=== PATIENT | male | born 1960 | race Caucasian/White ===

== ENCOUNTER 2023-08-12 08:28 | Day surgery (SDC) | payer BC, SELFPAY ==
[2023-08-02 09:01] LABS: % Basophils 0.6 % (0-2); % Eosinophils 3.1 % (0-6); % Immature Granulocytes 0.3 % (0-0.5); % Lymphocytes 33.5 % (20.5-51.1); % Monocytes 7.8 % (1.7-9.3); % Neutrophils 54.7 % (42.2-75.2); Absolute Eosinophils 0.2 10^3/uL (0-0.7); Absolute Lymphocytes 2.4 10^3/uL (1.2-3.4); Absolute Monocytes 0.6 10^3/uL (0.1-0.6); Absolute Neutrophils 3.9 10^3/uL (1.4-6.5); Hematocrit 40.5 % (39.0-52.0); Hemoglobin 14.5 g/dL (13.0-18.0); Mean Corp Hgb Conc. 35.8 g/dL (33.0-37.0); Mean Corpuscular Hgb 31.1 pg (27.0-31.0); Mean Corpuscular Volume 86.9 fL (80.0-94.0); Mean Platelet Volume 10.1 fL (7.4-10.4); Nucleated Red Blood Cells % 0 % (-); Platelet Count 173 10^3/uL (130-400); Red Blood Cell Count 4.66 10^6/uL (4.70-6.10); White Blood Cell Count 7.1 10^3/uL (4.8-10.8)
[2023-08-02 09:12] LABS: ALT (SGPT) 26 U/L (0-50); AST (SGOT) 25 U/L (17-59); Albumin 4.3 g/dl (3.5-5.0); Alkaline Phosphatase 99 U/L (38-126); Blood Urea Nitrogen 24 mg/dl (9-20); Calcium 9.1 mg/dl (8.4-10.2); Carbon Dioxide 28 mmol/L (22-30); Chloride 103 mmol/L (98-107); Glucose 99 mg/dl (70-99); Magnesium 1.9 mg/dl (1.6-2.3); Potassium 4.3 mmol/L (3.5-5.1); Sodium 139 mmol/L (135-145); Total Bilirubin 0.8 mg/dl (0.2-1.3); Total Protein 6.8 g/dl (6.3-8.2); eGFR > 60.00
--- NOTE | 2023-08-02 09:22 | HPS.HSE ---
Family Physician
-
Family Physician: Lance Michaud
Chief Complaint
-
Paroxysmal atrial fibrillation.
History of Present Illness
The patient is a 62 year old male presenting today for paroxysmal atrial fibrillation. The patient reports a history of fatigue, dizziness, and shortness of breath secondary to this diagnosis. He has previously undergone 2 pulmonary vein
isolations in November 2019 and October 2021 for his arrhythmia. He is on current pharmacological therapy with Diltiazem. He has been compliant with Eliquis for oral anticoagulation. He notes that his symptoms associated with his atrial fibrillation
greatly interfere with his activities of daily living and overall have impacted his quality of life. He is interested in pursuing pulmonary vein isolation again for further arrhythmia management. He denies any current complaints today such as chest
pain, shortness of breath at rest, palpitations, nausea, vomiting, diarrhea, lightheadedness, cough, sore throat, or fever.
Medical History
Past Medical History
Past Medical History: Reports Other
Additional Past Medical History:
1. Paroxysmal atrial fibrillation, status post pulmonary vein isolation x2; pharmacological therapy with Diltiazem, oral anticoagulation with Xarelto.
2. Hypertension.
3. Mild mitral regurgitation.
4. Mild tricuspid regurgitation.
5. Right-sided pneumothorax, 1982, status post thoracentesis.
6. Mild obstructive sleep apnea, no device advised.
7. Colon polyps.
8. Diverticulosis.
9. Nephrolithiasis.
10. Fatty liver disease.
11. Sciatica.
12. Chronic low back pain.
13. Osteoarthritis, status post right total knee arthroplasty 05/2023.
14. Basal cell carcinoma, status post excision.
15. Obesity, BMI 35.3.
16. Remote history of tobacco abuse.
Past Surgical History: Reports Other
Additional Past Surgical History:
1. Pulmonary vein isolation x2.
2. Right total knee arthroplasty.
3. Laser lithotripsy, left renal stent.
4. Basal cell carcinoma excision.
5. Tonsillectomy.
6. Colonoscopy x3.
Social History
Tobacco: Former Smoker (Former 1 and 1/2 pack per day cigarette smoker who quit tobacco altogether 40 years ago. )
Alcohol: Other (Rare.)
Personal:
Living: With Family (in a 3 story home. )
Family History
Family History: Not pertinent
Allergies / Home Medications
Allergy/Medication List:
Home medications:
1. Diltiazem 120 mg p.o. twice a day.
2. Eliquis 5 mg p.o. twice a day.
Allergies: No known allergies.
Review of Systems
-
A 12 point ROS was completed and negative except as noted: Yes
Physical Exam
Vital Signs
Blood pressure 125/95. Heart rate 67. Respirations 18. Pulse ox 97% on room air.
Height 5 feet, 10 inches. Weight 111.5 kg. BMI 35.3.
Physical Exam
General: Well Developed, Well Nourished and No Apparent Distress
HEENT: NormoCephalic, Moist mucous membranes, Atraumatic and PERRLA
Respiratory: Clear
Cardiac: Regular Rhythm
GI: Soft, Non Tender, Non Distended and Other (Obese. )
Musculoskeletal: Normal Gait & Station and Other (Well healed surgical incision of right knee. )
Skin: Warm and Dry
Neuro: AO x 3 and Nonfocal/grossly intact
Laboratory Results
-
08/02/23 08:14
08/02/23 08:14
Laboratory Results
Total Bilirubin 0.8 mg/dl (0.2-1.3) 08/02/23 08:14
AST 25 U/L (17-59) 08/02/23 08:14
ALT 26 U/L (0-50) 08/02/23 08:14
Alkaline Phosphatase 99 U/L (38-126) 08/02/23 08:14
PT 14.2. INR 1.12.
Type and screen O positive.
EKG 08/02/2023: Normal sinus rhythm. Low voltage QRS.
Echocardiogram 01/08/2023: Normal left ventricular size, wall thickness and systolic function without regional wall motion abnormalities.�Estimated LV ejection fraction is 55 to 60% by visual estimation.� Normal diastolic function. Normal right
ventricular size and systolic function. Mildly thickened mitral valve leaflets with mild mitral regurgitation. Trileaflet aortic valve without evidence of aortic stenosis or regurgitation. Trace tricuspid regurgitation with estimated pulmonary
artery systolic pressure 26 mmHg, assuming a right atrial pressure of 3 mmHg. Mild pulmonic regurgitation. No pericardial effusion.
Impression/Plan
-
IMPRESSION/PLAN:
1. Paroxysmal atrial fibrillation: The patient is in need of pulmonary vein isolation with Dr. Kevan Coello on 08/12/2023. The benefits and risks of the procedure have been explained to the patient. The patient understands these risks and wishes to
proceed. He will not be required to undergo a pre-procedural transesophageal echocardiogram as he has been compliant with his home oral anticoagulation. He is aware to continue his Eliquis up until the night prior to his procedure unless otherwise
specified by his surgeon.
[2023-08-02 09:26] LABS: INR 1.12; PT 14.2 Sec (11.4-14.6)
[2023-08-02 11:08] VITALS: BMI 35.3
[2023-08-12] VITALS (11 sets, daily range): BP systolic 103–149; BP diastolic 64–133; BMI 34.6
[2023-08-12 12:16] LABS: ACT-LR - POC 289 Seconds (116-155)
[2023-08-12 12:36] LABS: ACT-LR - POC 319 Seconds (116-155)
--- NOTE | 2023-08-12 13:26 | ITS.CL.ABL ---
Master Motorcycle Technician - Ablation
Ablation
Procedure Report:
ELECTROPHYSIOLOGY ABLATION STUDY
DATE:: August 12, 2023 REFERRING: Dr. Jori Bermeo
INDICATION: Paroxysmal supraventricular tachycardia in the form of atrial fibrillation. Prior PVI x 2
HISTORY: See H and P. As above
ANTIARRHYTHMIC DRUG: Diltiazem
PRE-PROCEDURE AZUL: No atrial thrombus
PRESENTING RHYTHM: Sinus rhythm
'TIME-OUT': called and confirmed.
SEDATION/ANESTHESIA: provided via the anesthesia department using general anesthesia (LMA).
INTRAVENOUS/ARTERIAL ACCESS:
Right femoral venous - 8Fr
Left femoral venous - 8 Fr, 6 Fr
Vascade closure was performed on each individual venous access site in the right and left femoral veins with adequate hemostasis
Ultrasound guidance for bilateral femoral vein access was utilized by me to obtain access with demonstration of normal anatomy
CHADS-VASC Score:
HAS-Bled Score
PROCEDURE:
1. A decapolar CS catheter was placed within the CS for mapping and pacing. This was also used as the reference catheter for the 3-D map.
2. The intracardiac ultrasound catheter was positioned in the RA to identify the FO for targeting of transseptal puncture, assist in identification of the pulmonary vein ostia, monitoring pre and post ablation pulmonary vein flow velocities,
monitoring for 'bubble' formation during RF application as a sign of thermal injury, and to monitor for pericardial effusion during mapping and ablation procedure. Left atrial size, LV ejection fraction, and pulmonary vein flows were monitored
pre and post ablation procedure. The other valves were inspected and found to be free of significant regurgitation or stenosis.
3. Half of the calculated heparin bolus was administered prior to the first transeptal puncture. Transseptal puncture was performed to diagnose RA and LA pressure so that safety of LA mapping and ablation could be further assessed, and to access
the left atrium and pulmonary veins for mapping and ablation. This entailed advancing an 10 Barbadian steerable sheath with dilator into the superior vena cava and withdrawing both (monitoring intracardiac ultrasound, fluoroscopy and tip pressure)
with the tip oriented toward the atrial septum. The fossa ovalis was engaged (indicated by sudden displacement of the sheath tip as well as tenting of the fossa seen on intracardiac ultrasound). Left atrial access required a pass with the
Brockenbrough needle extended. Left atrial catheter position was confirmed by pressure monitoring (RA mean pressure 8 mm Hg and LA mean pressure 14 mm Hg), LA saturation ( 99 %), as well as fluoroscopy. The sheath was advanced over the dilator
and positioned in the left atrium. The remainder of the calculated heparin bolus was administered and heparin was
infused to maintain ACT at 300 -350 seconds throughout the case.
4. RA pacing was performed via the proximal decapolar poles and LA pacing was performed via the distal decapolr poles.
5. A quadrapolar catheter was first positioned at the His position for His Bundle recording which was tagged via the 3-D Navex sytem, and then passed to the RVA for RV pacing and recording.
6. The 4 mm tactic cath and multipolar catheter were placed in each of the LIPV, LSPV, RSPV and the RIPV.
7. Next, a 3-D map was created using Navex. A 3-D reconstructed CT image was compared to the 3-D Navex map to assist in anatomic interpretation, mapping and ablation. The CT image and the NavX image were fused.
8. Lesions from the left superior pulmonary vein roof down through the mina and at the inferior base of the left pulmonary vein were performed to isolate the mina of the left superior pulmonary vein and roof of the left upper pulmonary vein.
Esophageal temperature monitoring was performed as the esophagus was about the posterior wall and with any temperature rise ablation was halted and performed in a different region. Peak rise was 38.8 �C with a baseline of 36.9 �C and the true
posterior wall in the medial aspect. Minimal ablation was given in this region and ablation was concentrated more on the roof from the left peroneal vein towards the right pulmonary vein and more anterior to avoid esophageal heating. The
esophageal temperature was also moved up and down to follow ablation up and on the posterior wall. The left atrial posterior wall was isolated from roof down to the inferior portion of the left atrial posterior wall entrance next block confirmed.
There was intersex blood confirmed in all 4 pulmonary veins. EP study post isolation demonstrated no other nonpulmonary vein trigger for atrial fibrillation or other supraventricular mechanism for arrhythmia.
9. After pulm vein isolation and isolation of the left atrial posterior wall EP study demonstrated normal sinus node and AV jose miguel function.
TOTAL FLOURO TIME: 11.7 minutes 137 mGy
TOTAL RF DURATION: 16 minutes
REVERSAL OF HEPARIN: 35 mg of protamine, slow IV administration
COMPLICATIONS:
None
Intracardiac US shows no pericardial effusion post ablation.
SUMMARY:
Complex left atrial mapping and ablation.
Isolation of the pulmonary veins as above as well as substrate modification and left atrial posterior wall isolation
RECOMMENDATIONS:
1. Admit to monitored bed.
2. Resume anticoagulation
3. PPI for 30 days given esophageal heating
4. Out of bed in 2 hours and consider same-day discharge
Copy to: Dr. Jori Bermeo
[2023-08-12] MEDS: ANESTHETIC LOZENGE 1 LOZENGE PO (13:56)
--- NOTE | 2023-08-12 16:07 | W.PN.UPDATE ---
Update Note
Progress Note Update
62 yo WM s/p PVI (same day). He feels good, no cp, sob, arsen diet, voiding, amb w/o dizziness, L groin after getting oob bled, manual pressure held by RN for 10min, it is c/d/i soft, no HT. He will continue OAC Eliquis dose at 7pm at home. He will
continue diltiazem and will add PPI for 30 days. Activity restrictions reviewed. He will f/u Dr. Bermeo in 1 mo. He is for d/c home after 430p.
SUMMARY:�
Complex left atrial mapping and ablation.
Isolation of the pulmonary veins as above as well as substrate modification and left atrial posterior wall isolation
RECOMMENDATIONS:
1. Admit to monitored bed.
2. Resume anticoagulation
3.� PPI for 30 days given esophageal heating
4.� Out of bed in 2 hours and consider same-day discharge
Copy to: Dr. Jori Bermeo
== END 2023-08-12 16:35 | disposition home or self-care (01) ==
LOC: CATH 08:28
PROVIDERS: ATTENDING PHYSICIAN Internal Medicine Cardiovascular Disease; FAMILY PHYSICIAN Internal Medicine; OTHER PHYSICIAN Nuclear Medicine Nuclear Cardiology
DX: I48.0 Paroxysmal atrial fibrillation (principal); I10 Essential (primary) hypertension; I08.1 Rheumatic disorders of both mitral and tricuspid valves; Z86.010 Personal history of colon polyps; G47.33 Obstructive sleep apnea (adult) (pediatric); K76.0 Fatty (change of) liver, not elsewhere classified; N20.0 Calculus of kidney; M54.50 Low back pain, unspecified; G89.29 Other chronic pain; E66.9 Obesity, unspecified; Z68.35 Body mass index [BMI] 35.0-35.9, adult; M54.30 Sciatica, unspecified side; Z87.891 Personal history of nicotine dependence; K57.90 Diverticulosis of intestine, part unspecified, without perforation or abscess without bleeding; Z79.01 Long term (current) use of anticoagulants
CPT/HCPCS: C1732; C1894; C1766; C2630; C1892; C1759; 36415; 76937; 80053; 83735; 85025; 85347; 85610; 86850; 86900; 86901; 93005; 93656; C1760

== ENCOUNTER 2023-09-08 09:50 | Emergency (ER) | payer BC, SELFPAY ==
[2023-09-08 09:56] VITALS: BP 153/89
--- NOTE | 2023-09-08 10:21 | ED.GENMED ---
History of Present Illness
General
Chief Complaint: Breathing Problem
Source: patient
Time Seen by Provider: 09/08/23 10:13
Travel History
Have you had any contact with someone who has COVID-19?: No
Do you have any symptoms of coronavirus? Fever > 100 degrees, chills, cough, shortness of breath, sore throat, loss of taste or smell, muscle aches, or headache?: No
History of Present Illness
History of Present Illness:
63-year-old male with past medical history of atrial fibrillation presenting to the emergency department for evaluation of sudden onset of palpitations, shortness of breath and an elevated heart rate about 20 minutes prior to arrival, symptoms
resolved upon arrival to the emergency department. Patient states that he was waiting in line at a bagel shop for a bagel prior to the onset of symptoms. He notes that he is on Eliquis and diltiazem for his A-fib and has been ablated 3 separate
times with last being in July but states he continues to go in and out of A-fib. Patient states that he has never been cardioverted as he normally goes out of A-fib and back into a normal sinus rhythm on his own. He reports good compliance with
his Eliquis as well as diltiazem and took his medications this morning. Presently denying any chest pain, palpitations, shortness of breath, cough, fevers or any other infectious symptoms.
Past History
Past History
ED Past Medical History: Arrthythmia (A fib ), Cancer (Skin CA), Psychiatric (Anxiety) and Other (Sciatic, Right lung collapsed with COVID, Diverticulosis, Renal calculus)
ED Past Surgical History: Cardiac (Ablation for A. fib x2), Tonsilectomy and Urological (Lithotrpisy with stent)
Social History
Tobacco: Former smoker
Alcohol: None
Drug: None
Personal:
Living: with family
Employment: Employed
Review of Systems
Review of Systems
All Other Systems: ROS reviewed and negative except as documented in HPI and ROS
Phy Exam
Physical Exam
Physical Exam:
GENERAL: Alert , in no apparent distress
EYE: Clear conjunctiva
NECK: Supple
ENT: o/p clr, mmm.
CARDIAC: Irregularly irregular, tachycardic with rate between 90 and 115 bpm
LUNGS: Clear breath sounds bilaterally, no acute respiratory distress,
ABDOMEN: Soft, without focal tenderness, no r/g, no cvat
NEUROLOGICAL: Alert and oriented
SKIN: Warm and dry, skin intact.
MUSCULOSKELETAL: No edema, well perfused.
PSYCH: Normal and appropriate interaction.
Scores
Heart Failure Risk
Heart Failure Risk Score: Not Applicable
Heart Score for Chest Pain Patients
STEMI patient?: Not applicable
Withdrawal Assessment of Alcohol
Withdrawal Assessment Completed?: Not applicable
Course
Orders/Labs/Results
Orders:
Orders
09/08/23 09:52
ECG [Electrocardiogram (*1)] Urgent
Reason for Study: Atrial Fibrillation
EKG- Treatment ONCE
09/08/23 10:16
EKG [Electrocardiogram (*1)] Urgent
Reason for Study: Shortness of Breath
09/08/23 10:17
EKG- Treatment ONCE
09/08/23 10:21
Diltiazem HCl [Cardizem] 10 mg IV NOW STA
09/08/23 10:49
Complete Blood Count/With Diff Urgent
09/08/23 11:46
Basic Metabolic Panel Urgent
Magnesium Urgent
TSH Urgent
Abnormal Lab Results
09/08/23
10:49
RBC 4.65 L 10^6/uL
(4.70-6.10)
09/08/23 10:49
09/08/23 11:46
Vital Signs
Initial and Last Documented VS:
Initial Vital Signs
Temp Pulse Resp BP Pulse Ox
97.7 F 69 18 153/89 100
09/08/23 09:56 09/08/23 09:56 09/08/23 09:56 09/08/23 09:56 09/08/23 09:56
Last Documented Vital Signs
Temp Pulse Resp BP Pulse Ox
97.7 F 98 12 119/86 97
09/08/23 09:56 09/08/23 12:15 09/08/23 12:15 09/08/23 12:00 09/08/23 12:15
MDM/Problems Addressed
Differential Diagnosis Includes:
Cardiac dysrhythmia, valvular dysfunction, electrolyte disturbance
MDM/Problems Addressed:
63-year-old male present emergency department for evaluation of sudden onset palpitations and shortness of breath about 30 minutes prior to arrival. Symptoms fully resolved. Initial EKG did show patient in a normal sinus rhythm however during my
exam based off of telemetry it appears patient went back into atrial fibrillation with a rate between 90 and 115 bpm. A second EKG was performed which did show patient in atrial fibrillation with a PVC. No acute ischemic changes. Will treat
patient with a dose of Cardizem IV. Will discuss with cardiology about potentially increasing his Cardizem 120 mg p.o. twice daily to 180 mg p.o. twice daily and close outpatient follow-up. Patient is otherwise comfortable and stable.
Chronic conditions affecting care: Arrhythmia
Acute Exacerbation and/or Progression of Chronic Illness: Arrhythmia
*Pulse Oximetry
Patient hypoxic: no
*EKG
Interpreted by ED Provider?: Yes
Comparison EKG: no changes
Heart Rate: 69
Rate: normal
Rhythm: sinus
Deridder: right axis deviation
Ischemia: no ischemia
*Delivery Representative Interpretation
Rate: tachycardiac
Rhythm: a-fib
*Critical Care Note
Total Time (30-74mins, 75-104mins- exclusive of procedures): Not Applicable
Data Reviewed
Review of Other/Old Records Reveals: Labs and Records
Patient Management
Discussion with other providers: Senior Sql Developer
Escalation/DeEscalation of care consider admission/obs:
Case was discussed with patient's scientific research manager, Dr. Bermeo, who came to the emergency department to evaluate the patient. Patient was offered admission for Tikosyn however declined. Patient will have his Cardizem increased from 120 mg p.o. twice
daily to 180 mg p.o. twice daily and follow-up as an outpatient. He does remain in atrial fibrillation but this is currently rate controlled. Aware of return precautions emergency department. Patient feels comfortable and happy with this
treatment plan.
ED Attending Note
-
Portions of this chart may have been created with voice recognition software.� Occasional wrong word or��sound alike� substitutions may have occurred due to the inherent limitations of voice recognition software.
Discharge Plan
Departure
Patient Disposition: Home (Routine Discharge)
Date of Disposition: 09/08/23
Time of Disposition: 12:18
Patient with high blood pressure during this ER visit?: Yes
Discharge Problem:
Atrial fibrillation
Instructions: Atrial Fibrillation (DC)
Prescriptions:
No Action
Eliquis 5 MG tablet
5 mg PO BID
diltiazem HCl [Cartia XT] 120 mg Capsule,Extended Release 24hr
120 mg PO BID
pantoprazole [Protonix] 40 mg tablet,delayed release (DR/EC)
40 mg PO QPM
Referrals:
Jori Bermeo DO [Active] -
Lance Michaud MD [Family Provider] -
Interventions
Interventions:
*ED COVID-19 Vaccine History Last Done: 09/08/23 09:56
*Nursing Disposition Last Done: 09/08/23 12:34
ED- Cardiac Assessment Last Done: 09/08/23 10:33
Discharge Date and Time
Discharge Date/Time: 09/08/23 12:35
Print Language: GUAMANIAN
[2023-09-08 10:39] VITALS: BMI 36.1
[2023-09-08 10:51] VITALS: BP 110/84
[2023-09-08] MEDS: CARDIZEM 10 MG IV (10:51)
[2023-09-08 11:00] VITALS: BP 129/98
[2023-09-08 11:04] LABS: % Basophils 0.5 % (0-2); % Eosinophils 1.7 % (0-6); % Immature Granulocytes 0.3 % (0-0.5); % Lymphocytes 31.5 % (20.5-51.1); % Monocytes 7.9 % (1.7-9.3); % Neutrophils 58.1 % (42.2-75.2); Absolute Eosinophils 0.1 10^3/uL (0-0.7); Absolute Monocytes 0.5 10^3/uL (0.1-0.6); Absolute Neutrophils 3.7 10^3/uL (1.4-6.5); Hemoglobin 14.3 g/dL (13.0-18.0); Mean Corp Hgb Conc. 35.8 g/dL (33.0-37.0); Mean Corpuscular Hgb 30.8 pg (27.0-31.0); Mean Platelet Volume 9.7 fL (7.4-10.4); Nucleated Red Blood Cells % 0 % (-); Platelet Count 190 10^3/uL (130-400); Red Blood Cell Count 4.65 10^6/uL (4.70-6.10); White Blood Cell Count 6.3 10^3/uL (4.8-10.8)
[2023-09-08 12:00] VITALS: BP 119/86
[2023-09-08 12:15] LABS: Blood Urea Nitrogen 20 mg/dl (9-20); Carbon Dioxide 27 mmol/L (22-30); Chloride 105 mmol/L (98-107); Estimated Creatinine Clearance 104 ml/min; Glucose 89 mg/dl (70-99); Potassium 3.9 mmol/L (3.5-5.1); Sodium 138 mmol/L (135-145); eGFR > 60.00
[2023-09-08 12:45] LABS: TSH 1.08 uIU/ml (0.47-4.68)
--- NOTE | 2023-09-08 17:21 | CON.CAR ---
Addendum entered and electronically signed by Jori Bermeo DO 09/09/23 15:21:
I saw and examined the patient.
The Soap Maker's note was reviewed and I agree with the note.
Comment:
Plan:
Discussed with patient recurrent atrial fibrillation post ablation. Discussed with EP. Tikosyn load recommended with 500 mcg twice daily and hospital admission. Discussed options with patient and he would like to defer this for now. We also
discussed Convergent ablation procedure. He may consider this. For now he is preference is continued rate control and anticoagulation. Cardizem was increased to 180 mg twice daily. He continues with anticoagulation. He will call with recurrent
longer symptomatic episodes of atrial fibrillation.
He felt improved after receiving Cardizem in the emergency room.
He is hemodynamically stable from a cardiac standpoint.
Discussed with his at bedside.
Discussed with the emergency room.
Original Note:
Consultation
Consultation Request
Date/Time Consultation Requested: 09/08/23
Date/Time Consultation Performed: 09/08/23
Requesting Provider: Shaye SZYMANSKI in ER
Performing Provider: Dr. Bermeo
Reason for Consultation: Afib
Medical History
-
History of Present Illness:
Patient came to [facility] today with palpitations, dizziness and SOB so cardiology consulted for recurrent Afib. Patient says that about 20 minutes before coming to [facility] he had sudden onset of palpitations and SOB. In [facility] patient was found to be in Afib
with RVR. Patient has known paroxysmal Afib and had his third ablation last month. Patient has not missed any doses of Eliquis. He is taking Cardizem CD 120 mg BID and took his usual dose this AM. He feels like he has had other shorter bursts of
Afib since ablation, but this episode was sustained so he came to [facility]. No chest pain.
PMH:
h/o paroxysmal Afib
s/p PVI 12/22/19
s/p PVI 11/18/21
s/p PVI 08/12/23
Chronic Eliquis OAC
Hypertension.
Mild MR/TR by echo 01/08/23
h/o Right-sided pneumothorax s/p thoracentesis, 1981
Mild obstructive sleep apnea, no device advised.
Colon polyps.
Diverticulosis.
Nephrolithiasis.
Fatty liver disease.
Sciatica.
Chronic low back pain.
Osteoarthritis, status post right total knee arthroplasty 05/2023.
Basal cell carcinoma, status post excision.
Remote history of tobacco abuse.
Past Medical History
Past Medical History: Other (in HPI)
Past Surgical History: Cardiac (PVI 12/22/19, 11/18/21, 08/12/23) and Tonsilectomy
Social History
Tobacco: Former Smoker
Alcohol: None
Drug: None
Family History
Family History: CAD (2 brother from CAD and a 3rd brother of a PE) and Diabetes
Allergies / Home Medications
Allergy/AdvReac Type Severity Reaction Status Date / Time
No Known Allergies Allergy Verified 09/08/23 09:56
�Medication �Instructions �Recorded �Confirmed �Type
apixaban 5 mg tablet (Eliquis) 5 mg PO BID 12/22/19 09/08/23 History
diltiazem HCl 120 mg 120 mg PO BID 09/08/23 09/08/23 History
capsule,extended release 24 hr
(Cartia XT)
pantoprazole 40 mg tablet,delayed 40 mg PO QPM 09/08/23 09/08/23 History
release (Protonix)
Review of Systems
-
History Source: Patient
All other systems: Negative unless noted
Physical Exam
Vital Signs
Temp Pulse Resp BP Pulse Ox
97.7 F 98 12 119/86 97
09/08/23 09:56 09/08/23 12:15 09/08/23 12:15 09/08/23 12:00 09/08/23 12:15
GEN: NAD. AAOx3
HEENT: EOMI, MMM
LUNGS: No audible wheeze
CV: Irreg irreg
ABD: ND
EXT: No edema B/L LE
NEURO: Gross non-focal
SKIN: Warm, dry and pink. No rash
Lab Results
09/08/23 10:49
09/08/23 11:46
Impression / Plan
-
PCP: Dr. Michaud
Cardiology: Dr. Bermeo
Impression:
Paroxysmal Afib with RVR 09/08/23
h/o paroxysmal Afib
s/p PVI 12/22/19
s/p PVI 11/18/21
s/p PVI 08/12/23
Chronic Eliquis OAC
HTN
Mild MR/TR
Right-sided pneumothorax s/p thoracentesis, 1981
Mild obstructive sleep apnea, no device advised.
Fatty liver disease.
Osteoarthritis, status post right total knee arthroplasty 05/2023.
Obesity, BMI 35.3.
Remote history of tobacco abuse.
Echo 01/08/23: EF 55 to 60% without WMA, normal right ventricular size and systolic function, mild mitral regurgitation, no
Plan:
-Patient came to [facility] today with palpitations, dizziness and SOB so cardiology consulted for recurrent Afib. Patient says that about 20 minutes before coming to [facility] he had sudden onset of palpitations and SOB. In [facility] patient was found to be in
Afib with RVR. Patient has known paroxysmal Afib and had his third ablation last month. Patient has not missed any doses of Eliquis. He is taking Cardizem CD 120 mg BID and took his usual dose this AM. He feels like he has had other shorter bursts
of Afib since ablation, but this episode was sustained so he came to [facility]. No chest pain.
-Patient seen as a consult in [facility] 09/08/23 and note completed the following day.
-ECG reviewed by me shows Afib in RVR
-Patient with symptomatic recurrence of known pAfib after most recent PVI 08/12/23. Offered patient options of increasing dose of Cardizem CD or direct admission for Tikosyn loading. Patient is not interested in admission and Tikosyn load. He is
agreeable to higher dose Cardizem CD 180 mg BID. e-scribed via the [employer] system.
-Also talked with patient about consideration for convergent MAZE procedure and he is not sure, but going to think about it.
-Patient declined offer of CV in the ER. HRs controlled and less than 100 bpm after Cardizem 10 mg IV x1.
== END 2023-09-08 12:35 | disposition home or self-care (01) ==
LOC: EMR 09:50
PROVIDERS: Physician Assistant Medical; EMERGENCY PHYSICIAN Emergency Medicine; FAMILY PHYSICIAN Internal Medicine; OTHER PHYSICIAN Nuclear Medicine Nuclear Cardiology
DX: I48.91 Unspecified atrial fibrillation (principal); F41.9 Anxiety disorder, unspecified; E66.9 Obesity, unspecified; G47.33 Obstructive sleep apnea (adult) (pediatric); G89.29 Other chronic pain; I10 Essential (primary) hypertension; I48.0 Paroxysmal atrial fibrillation; I49.3 Ventricular premature depolarization; M19.90 Unspecified osteoarthritis, unspecified site; Z68.35 Body mass index [BMI] 35.0-35.9, adult; Z79.01 Long term (current) use of anticoagulants; Z79.899 Other long term (current) drug therapy; Z82.49 Family history of ischemic heart disease and other diseases of the circulatory system; Z83.3 Family history of diabetes mellitus; Z85.828 Personal history of other malignant neoplasm of skin; Z86.16 Personal history of COVID-19; Z87.19 Personal history of other diseases of the digestive system; Z87.442 Personal history of urinary calculi; Z87.891 Personal history of nicotine dependence; Z95.5 Presence of coronary angioplasty implant and graft; Z96.651 Presence of right artificial knee joint
CPT/HCPCS: 99283; 96374; 80048; 83735; 84443; 85025; 93005

== ENCOUNTER → 2024-07-24 07:07 | Outpatient (REF) | payer BC, SELFPAY | LOC: RCS 07:07 | PROVIDERS: ATTENDING PHYSICIAN Nuclear Medicine Nuclear Cardiology; FAMILY PHYSICIAN Internal Medicine | DX: I48.0 Paroxysmal atrial fibrillation (principal) | CPT/HCPCS: 93306 ==